=== PATIENT | female | born 1990 | race Caucasian/White ===

== ENCOUNTER 2016-11-24 11:16 | Observation (INO) | payer OTHER ==
[2016-11-24] MEDS ORDERED: BRETHINE SUBQ ONE ×2 (11:47→12:48)
[2016-11-24 12:07] LABS: URINE SOURCE VOIDED
[2016-11-24 12:18] LABS: BILIRUBIN URINE NEGATIVE (NEGATIVE); BLOOD URINE NEGATIVE (NEGATIVE); CLARITY SL. CLOUDY (CLEAR); COLOR YELLOW; LEUKOCYTES URINE 1+ (NEGATIVE); NITRITE URINE NEGATIVE (NEGATIVE); PROTEIN URINE NEGATIVE (NEGATIVE); UROBILINOGEN URINE NORMAL
[2016-11-24] MEDS ORDERED: MAGNESIUM SULFATE 4 GM/S.W.I. 100 ML IV ONE (14:08)
[2016-11-24] MEDS ORDERED: CELESTONE SOLUSPAN IM ONE (14:09)
[2016-11-24] MEDS: LR 1,000 ML IV SCH ×2 (14:55→22:45)
[2016-11-24] MEDS ORDERED: STADOL IV PRN (15:34)
[2016-11-24] MEDS ORDERED: TYLENOL PO PRN (15:35)
[2016-11-24] MEDS ORDERED: AMBIEN PO PRN (15:35)
[2016-11-24] MEDS: S W I IV SCH (15:44)
[2016-11-24] MEDS: MAGNESIUM SULFATE IV SCH (15:44)
--- NOTE | 2016-11-24 17:37 | HISTORY AND PHYSICAL ---
ADMITTING DIAGNOSIS: labor. SUMMARY: Lesvia Medina that is a 26-year-old, 3, para 2-0-0-2, who has had care at our office. She is at 33-1/2 weeks' gestation. She has had an uncomplicated . She presented to labor and delivery reporting vaginal pressure. She was noted to have contractions. Examination by our nurse showed her to be 1 cm dilated. She has no history of labor with this . She had no labor with her previous pregnancies. She was given p.o. hydration and subcutaneous Brethine x2. She continued to contract. We are now starting her on magnesium sulfate. PAST MEDICAL AND SURGICAL HISTORY: The patient has had 2 previous vaginal deliveries. She has no chronic medical or surgical illnesses. ALLERGIES: None. CURRENT MEDICATIONS: vitamins. REVIEW OF SYSTEMS: Noncontributory. LABORATORY DATA: Her blood type is O positive. Antibody screen is negative. RPR was nonreactive. PHYSICAL EXAMINATION: GENERAL: Shows a well-developed, well-nourished, gravid female. VITAL SIGNS: Stable. She is afebrile. CARDIOVASCULAR: Regular rate and rhythm. No murmurs, rubs, gallops. PULMONARY: Clear. BREASTS: No masses. ABDOMEN: Nontender. Cervix was examined as above. EXTREMITIES: No clubbing, edema, or cyanosis. IMPRESSION: labor. PLAN: Ms. Medina has been started on magnesium sulfate. We will do a 4 gram bolus and then infuse at 2 grams an hour. We will go ahead and start betamethasone 12 mg IM to accelerate lung maturity. She is only 1 cm dilated though, and we will not start antibiotics at this point. If she continues to contract and makes any cervical change, we discuss transfer to [facility].
[2016-11-24] MEDS ORDERED: SODIUM CHLORIDE 0.9% INJ PRN (23:21)
[2016-11-24] MEDS ORDERED: PHENERGAN IV PRN (23:21)
[2016-11-25] MEDS: LR 1,000 ML IV SCH (06:49)
[2016-11-25 08:28] VITALS: BP 106/55
[2016-11-25] MEDS ORDERED: ZOFRAN IV PRN (09:12)
[2016-11-25] MEDS: MAGNESIUM SULFATE IV SCH (13:25)
[2016-11-25] MEDS: S W I IV SCH (13:25)
[2016-11-25] MEDS ORDERED: CELESTONE SOLUSPAN IM ONE (15:00)
[2016-11-25] MEDS ORDERED: MAGNESIUM SULFATE IV SCH ×2 (15:21→15:23)
[2016-11-25] MEDS ORDERED: S W I IV SCH ×2 (15:21→15:23)
== END 2016-11-25 17:10 | disposition home or self-care (01) ==
LOC: P.OPLD 11:16 → P.LD 11:17 → INTOOBSV 20:00 → P.OPLD 20:00 → P.LD 20:00
PROVIDERS: ADMIT Obstetrics & Gynecology; ATTEND Obstetrics & Gynecology
DX: O60.03 Preterm labor without delivery, third trimester (principal); Z3A.33 33 weeks gestation of pregnancy
CPT/HCPCS: 59025; 81003; J0702; J2405; J2550; J3105; J3475; J7120

== ENCOUNTER 2017-01-01 09:28 | Inpatient (IN) ==
[2017-01-02] MEDS ORDERED: TYLENOL PO PRN (00:08)
[2017-01-02] MEDS ORDERED: ZOFRAN IV PRN (00:08)
[2017-01-02] MEDS ORDERED: STADOL IV PRN (00:08)
[2017-01-02] MEDS ORDERED: KEFZOL 1 GM/D5W 1 GM/50 ML IVPB IV PRN (00:08)
[2017-01-02] MEDS ORDERED: REGLAN PO ONE (00:08)
[2017-01-02] MEDS ORDERED: PEPCID PO ONE (00:08)
[2017-01-02] MEDS ORDERED: PEPCID IV PRN (00:08)
[2017-01-02] MEDS ORDERED: PEPCID PO PRN (00:08)
[2017-01-02] MEDS ORDERED: AMPICILLIN 2 GM/NS 2 GM/100 ML IVPB IV ONE (00:08)
[2017-01-02] MEDS ORDERED: SODIUM CHLORIDE 0.9% INJ SCH (00:15)
[2017-01-02] MEDS: LR 1,000 ML IV SCH ×3 (00:35→08:40)
[2017-01-02 00:48] LABS: MANUAL DIFF NEEDED? NO
[2017-01-02 00:48] LABS: URINE SOURCE VOIDED
[2017-01-02 00:53] LABS: BASO% 0.2 % (0.0-0.8); EOS% 0.9 % (0.0-10.0); HEMATOCRIT 36.3 % (37.0-47.0); HEMOGLOBIN 12.2 g/dL (12.0-16.0); IMM GRAN# 0.06 X1000 (0.0-0.04); IMM GRAN% 0.6 % (0.0-0.5); LYMPH# 2.41 X1000 (1.2-3.4); LYMPH% 22.5 % (20.5-51.1); MCHC 33.6 g/dL (33-37); MCV 89.2 FL (81-99); MONO# 1.09 X1000 (0.11-0.59); MONO% 10.2 % (1.7-9.3); MPV 11.4 FL (7.4-10.4); NEUT% 65.6 % (42.2-75.2); PLT 240 X1000 (130-400); RBC 4.07 XMIL (4.2-5.4)
[2017-01-02 00:56] LABS: BILIRUBIN URINE NEGATIVE (NEGATIVE); BLOOD URINE NEGATIVE (NEGATIVE); CLARITY CLEAR (CLEAR); COLOR YELLOW; LEUKOCYTES URINE NEGATIVE (NEGATIVE); NITRITE URINE NEGATIVE (NEGATIVE); PROTEIN URINE NEGATIVE (NEGATIVE); SP GRAVITY URINE 1.015; UROBILINOGEN URINE NORMAL
[2017-01-02] MEDS: AMPICILLIN 1 GM/NS 1 GM/50 ML IVPB IV SCH ×2 (05:06→10:00)
[2017-01-02] MEDS ORDERED: PITOCIN 30 UNITS/LR 30 UNITS/500 ML IV.SOLN IV SCH (06:30)
[2017-01-02] MEDS ORDERED: FENTANYL-BUPIV-NS 2 MCG-0.1% 200 ML EPIDURAL PRN (07:35)
[2017-01-02] MEDS ORDERED: XYLOCAINE-MPF 1% INJ ONE (07:45)
[2017-01-02] MEDS ORDERED: MINERAL OIL ONE (11:40)
[2017-01-02] MEDS ORDERED: XYLOCAINE-MPF 1% ONE (11:40)
[2017-01-02] MEDS ORDERED: PITOCIN IM PRN (12:45)
[2017-01-02] MEDS ORDERED: NORCO-10 PO PRN (12:45)
[2017-01-02] MEDS ORDERED: PITOCIN 30 UNITS/LR 30 UNITS/500 ML IV.SOLN IV ONE (12:45)
[2017-01-02] MEDS ORDERED: MINERAL OIL PO PRN (12:45)
[2017-01-02] MEDS ORDERED: BENADRYL PO PRN (12:45)
[2017-01-02] MEDS ORDERED: PERI MEDS (DERMOPLAST/NUPERCAINAL/TUCKS) MISC PRN (12:45)
[2017-01-02] MEDS ORDERED: M-M-R II VACCINE SUBQ ONE (12:45)
[2017-01-02] MEDS ORDERED: CYTOTEC PO PRN (12:45)
[2017-01-02] MEDS ORDERED: PERCOCET-5 PO PRN (12:45)
[2017-01-02] MEDS ORDERED: BENADRYL IV PRN (12:45)
[2017-01-02] MEDS ORDERED: PERCOCET-10 PO PRN (12:45)
[2017-01-02] MEDS ORDERED: BOOSTRIX VACCINE IM ONE (12:45)
[2017-01-02] MEDS ORDERED: AMBIEN PO PRN (12:45)
[2017-01-02] MEDS ORDERED: HYDROXYZINE PO PRN (12:45)
[2017-01-02] MEDS ORDERED: XYLOCAINE-MPF 1% INJ PRN (12:45)
[2017-01-02] MEDS ORDERED: HYDROXYZINE IM PRN (12:45)
[2017-01-02] MEDS ORDERED: PITOCIN 20 UNITS/LR 20 UNITS/1,000 ML IV.SOLN IV SCH (12:45)
[2017-01-02] MEDS ORDERED: NORCO-5 PO PRN (12:45)
--- NOTE | 2017-01-02 16:42 | OPERATIVE NOTE ---
PROCEDURE DATE: 01/02/2017 DELIVERY PHYSICIAN: Koffi Mckenzie MD TYPE OF DELIVERY: Spontaneous controlled vaginal delivery. ANESTHESIA: Epidural. FINDINGS: At 11:56, an 8 pound 2 ounce female was delivered in occiput anterior presentation. Apgars were 9 at 1 minute and 10 at 5 minutes. SUMMARY: Lesvia Medina is a 26-year-old 3, para 2-0-0-2, at 39 weeks gestation. Her blood type is O positive. Rubella nonimmune. Hepatitis B surface antigen, HIV were negative. Group B strep was positive. Ms Medina was brought into Labor and Delivery last night. Began group B strep prophylactic antibiotics. This morning, she was 2 cm dilated with membranes ruptured, revealing clear fluid. IV Pitocin was begun. An epidural was placed for labor pain management. She progressed to labor without signs of stress or dystocia. She became complete and began pushing. She rapidly crowned. At that point, was placed in dorsal lithotomy position and with the next contraction spontaneous controlled vaginal delivery occurred. The shoulders and body delivered without complications. The oropharynx was bulb suctioned. Cord was clamped and cut. The was handed to the nurses for further care and evaluation. Cord blood was obtained. Placenta was spontaneously delivered and was intact. There were no cervical or vaginal lacerations. Blood loss was estimated at 150 mL. Patient remained in the LDR recovering without difficulty. cc: Koffi Mckenzie MD [facility]
[2017-01-02] MEDS: PERICOLACE PO SCH (20:12)
[2017-01-02] MEDS: MOTRIN PO PRN (23:18)
[2017-01-03 06:59] LABS: HEMATOCRIT 36.3 % (37.0-47.0); HEMOGLOBIN 11.6 g/dL (12.0-16.0); MCV 90.8 FL (81-99); MPV 11.7 FL (7.4-10.4)
[2017-01-03] MEDS: PRECARE PO SCH (08:50)
[2017-01-03] MEDS: MOTRIN PO PRN ×2 (12:41→20:52)
[2017-01-03] MEDS: PERICOLACE PO SCH (20:05)
[2017-01-04 08:02] VITALS: BP 110/70
[2017-01-04] MEDS: PRECARE PO SCH (08:04)
[2017-01-04] MEDS: MOTRIN PO PRN (08:05)
--- NOTE | 2017-01-05 06:55 | DISCHARGE SUMMARY ---
ADMISSION DATE: 01/02/2017 DISCHARGE DATE: 01/04/2017 ADMIT DIAGNOSIS: Intrauterine at term Rubella nonimmune for labor induction. DISCHARGE: 01/04/2017. Successful labor induction with a vaginal delivery. CONDITION: Stable. DIET: As tolerated. ACTIVITY: Routine instructions. MEDICATIONS: 1. She is to continue her vitamins with iron. 2. [place] 5 for pain. 3. Motrin 800 for cramping and stool softener, and she is to follow up with Dr. Mckenzie in 6 weeks. HOSPITAL COURSE: Please refer to Ms. Medina's records and delivery note. She has done well since delivery, now day 2, desiring discharge without complaints. PHYSICAL EXAMINATION: Vital signs: Stable. She is afebrile. Neck: Is supple. Lungs: Clear. Heart: Regular sinus rhythm. Abdomen: Distended. Uterus is firm. Extremities: No cyanosis, clubbing or edema in her extremities. LABS: Hemoglobin 11.6. We will discharge with the above instructions. cc: MD Koffi Valentine MD
== END 2017-01-04 10:45 | disposition home or self-care (01) ==
LOC: P.LD 01-02 00:06 → P.WC 01-02 17:48
PROVIDERS: ADMIT Obstetrics & Gynecology; ATTEND Obstetrics & Gynecology